=== PATIENT | female | born 1950 | race Two or more races ===

== ENCOUNTER 2021-04-09 08:15 | Inpatient (IN) | payer OTHER ==
[~2021-04-09] VITALS: Ht 160 cm; Wt 68.0 kg
[2021-04-09] MEDS ORDERED: NORVASC5 MG PO (10:01)
[2021-04-09] MEDS ORDERED: COZAAR100 MG PO (10:02)
[2021-04-09] MEDS ORDERED: CYMBALTA60 MG PO (10:02)
[2021-04-09] MEDS ORDERED: LIPITOR20 MG PO (10:02)
[2021-04-09] MEDS ORDERED: ATIVAN0.5 M1 PO (10:02)
[2021-04-09] MEDS ORDERED: CALTRATE 600+D1 EACH PO (10:03)
[2021-04-15] MEDS ORDERED: ELIQUIS2.5 MG PO (13:27)
[2021-04-15] MEDS ORDERED: CEFADROXIL500 MG PO (13:27)
[2021-04-15] MEDS ORDERED: PERCOCET 5-3251 EACH PO (13:27)
== END 2021-04-15 21:23 | disposition home or self-care (01) | DRG 470 ==
LOC: SURG 04-13 06:00 → O/R 04-13 06:00 → SURH 04-13 07:00 → SURG 04-13 12:41
PROVIDERS: ADMIT Orthopaedic Surgery; ATTEND Orthopaedic Surgery
PROC: 0SRD0J9 Replacement of Left Knee Joint with Synthetic Substitute, Cemented, Open Approach (ICD-10-PCS; principal; 2021-04-13 07:00)
DX: M17.12 Unilateral primary osteoarthritis, left knee (principal); D62 Acute posthemorrhagic anemia; M22.12 Recurrent subluxation of patella, left knee; M81.0 Age-related osteoporosis without current pathological fracture; I10 Essential (primary) hypertension